=== PATIENT | male | born 1965 | race Caucasian/White ===

== ENCOUNTER 2017-04-13 21:30 | Emergency (ER) | payer OTHER ==
[2017-04-13 21:35] VITALS: BP 131/80
--- NOTE | 2017-04-13 21:39 | ED Physician Documentation ---
PD HPI UPPER EXT INJURY - Stated complaint Stated Complaint: L INDEX FINGER LAC - Chief complaint Chief Complaint: Laceration - History obtained from History obtained from: Patient, Family - History of Present Illness Location: Left, Finger (index) Type of injury: Laceration (knife) Where injury occurred: Home Timing - onset: Today Timing - duration: Hours (1) Timing - details: Abrupt onset Pain level max: 2 Pain level now: 1 Improved by: Rest Worsened by: Moving, Palpating Associated symptoms: No: Weakness, Numbness, Tingling Contributing factors: No: Anticoagulated, Prior ortho surgery - Additonal information Additional information: accidentally cut with knife Review of Systems Neurologic: denies: Focal weakness, Numbness PD PAST MEDICAL HISTORY - Past Medical History Past Medical History: No - Past Surgical History Past Surgical History: No - Present Medications Home Medications: Ambulatory Orders Medication Instructions Recorded Confirmed Fluticasone [Flonase] 04/13/17 Loratadine [Claritin] 0 mg PO DAILY 04/13/17 04/13/17 - Allergies Allergies/Adverse Reactions: Allergies Allergy/AdvReac Type Severity Reaction Status Date / Time No Known Drug Allergies Allergy Verified 04/13/17 21:34 - Living Situation Living Situation: reports: With family Living Arrangement: reports: At home - Social History Does the pt have substance abuse?: No PD ED PE NORMAL - Vitals Vital signs reviewed: Yes - General General: Alert and oriented X 3, No acute distress - Derm Derm: Warm and dry - Extremities Extremities: Other (L index finger - superficial laceration over the pad of the finger. NVI. 1cm) - Neuro Neuro: Alert and oriented X 3 Results - Vitals Vitals: Vital Signs - 24 hr 04/13/17 21:31 Temperature 36.2 C L Heart Rate 81 Respiratory 16 Rate Blood Pressure 131/80 H O2 Saturation 98 Oxygen O2 Source Room air Procedures - Laceration (location) L index finger Length in cm: 1 Wound type: Linear, Superficial Neurovascular status: Sensory intact, Motor intact, Vascular intact Tendon involvement: Tendon intact Skin layer closure: Dermabond Other: Patient tolerated well, No complications, Neurovascular intact, Dressing applied, Tetanus UTD Complexity: Simple PD MEDICAL DECISION MAKING - ED course Complexity details: considered differential, d/w patient, d/w family ED course: Superficial laceration to the left index finger pad. Repaired with Dermabond and a finger cage applied. Warnings of infection and instructions on wound care given at bedside. Also counseled on how to minimize scarring. Patient counseled regarding signs and symptoms for which I believe and urgent re- evaluation would be necessary. Patient with good understanding of and agreement to plan and is comfortable going home at this time This document was made in part using voice recognition software. While efforts are made to proofread this document, sound alike and grammatical errors may occur. Departure - Departure Disposition: 01 Home, Self Care Clinical Impression: Laceration Condition: Good Instructions: ED Laceration Hand Follow-Up: Ramsey Isaac MD [Primary Care Provider] - As Needed Comments: Return if you worsen. Return if you notice redness, swelling or drainage from the wound. Discharge Date/Time: 04/13/17 22:03
== END 2017-04-13 22:03 | disposition home or self-care (01) ==
LOC: ED 21:30
DX: S61.211A Laceration without foreign body of left index finger without damage to nail, initial encounter (principal); W26.0XXA Contact with knife, initial encounter; Y92.019 Unspecified place in single-family (private) house as the place of occurrence of the external cause
CPT/HCPCS: 12001; 99282; 99283

== ENCOUNTER 2018-04-17 09:26 | Day surgery (SDC) | payer OTHER ==
[2018-04-17] MEDS ORDERED: LACTATED RINGERS 1,000 ML IV ONE ×2 (09:29→11:40)
[2018-04-17] MEDS ORDERED: MIDAZOLAM 2 MG/2 ML VIAL IVP ONE (11:09)
[2018-04-17] MEDS ORDERED: fentaNYL 250 MCG/5 ML VIAL IVP ONE (11:09)
[2018-04-17 12:07] VITALS: BP 116/69
== END 2018-04-17 09:27 | disposition home or self-care (01) ==
LOC: SDS 09:26
PROVIDERS: ATTEND Internal Medicine Gastroenterology
PROC: 0DJD8ZZ Inspection of Lower Intestinal Tract, Via Natural or Artificial Opening Endoscopic (ICD-10-PCS; principal; 2018-04-17 11:17)
DX: Z12.11 Encounter for screening for malignant neoplasm of colon (principal); Z87.891 Personal history of nicotine dependence
CPT/HCPCS: 45378; J3010; J7120

== ENCOUNTER 2018-07-04 08:25 | Emergency (ER) | payer OTHER ==
[2018-07-04] MEDS ORDERED: ASPIRIN CHEW 81 MG TABLET PO STA (08:55)
--- NOTE | 2018-07-04 08:59 | ED Physician Documentation ---
PD HPI CHEST PAIN - Stated complaint Stated Complaint: LOW BP/NEAR SYNCOPE - Chief complaint Chief Complaint: General - History obtained from History obtained from: Patient - History of Present Illness Timing - onset: How many minutes ago (40) Timing - onset during: Light activity Timing - details: Now resolved Quality: Tightness Location: Substernal, Left chest Radiation: Left upper extremity Improved by: Rest Associated symptoms: Nausea, Feeling faint / dizzy. No: Shortness of air, Vomiting - Additional information Additional information: The patient is a 52-year-old male who developed sudden onset of dizziness, lightheadedness, that started about 40 minutes prior to arrival while standing with coworkers. He kneeled down and had improvement of the lightheadedness. However while driving home he developed left-sided chest tightness radiating to his left arm, with associated nausea. He also experienced transient tingling in his left face. The symptoms lasted for about 30 minutes before resolving spontaneously. He is currently asymptomatic. Cardiac risk factors negative for diabetes, hypertension, hyperlipidemia. Positive for past history of cigarette smoking; currently he vapes. Grandmother had an ND at age 52. He reports history of similar symptoms a few years ago after smoking 4 packs of cigarettes in about 4 hour's time. Review of Systems Constitutional: reports: Other (Transient lightheadedness.). denies: Fever Ears: denies: Tinnitus/ringing Nose: denies: Congestion Throat: denies: Sore throat Cardiac: reports: Chest pain / pressure. denies: Palpitations Respiratory: denies: Dyspnea, Cough GI: reports: Nausea. denies: Abdominal Pain, Vomiting : denies: Dysuria Skin: denies: Rash Musculoskeletal: denies: Back pain Neurologic: reports: Near syncope. denies: Focal weakness, Numbness, Headache PD PAST MEDICAL HISTORY - Past Medical History Past Medical History: No Cardiovascular: None Respiratory: None Neuro: None Endocrine/Autoimmune: None GI: None - Past Surgical History Past Surgical History: Yes HEENT: Tonsil/Adenoidectomy - Present Medications Home Medications: Ambulatory Orders Medication Instructions Recorded Confirmed Fluticasone [Flonase] 1 spray BC DAILY 04/13/17 07/04/18 Loratadine [Claritin] 0 mg PO DAILY 04/13/17 07/04/18 Naproxen Sodium [Aleve] 220 mg NS DAILY 04/17/18 07/04/18 Nitroglycerin [Nitrostat] 0.4 mg SL Q5MIN PRN #25 tablet 07/04/18 - Allergies Allergies/Adverse Reactions: Allergies Allergy/AdvReac Type Severity Reaction Status Date / Time No Known Drug Allergies Allergy Verified 04/13/17 21:34 - Social History Does the pt smoke?: Yes Smoking Status: Current every day smoker (vapes) Does the pt drink ETOH?: No Does the pt have substance abuse?: No - Immunizations Immunizations are current?: Yes - POLST Patient has POLST: No PD ED PE NORMAL - Vitals Vital signs reviewed: Yes (hypertensive) - General General: Alert and oriented X 3, Well developed/nourished - HEENT HEENT: Atraumatic, EOMI, Moist mucous membranes, Pharynx benign - Neck Neck: No adenopathy, No JVD - Cardiac Cardiac: RRR, No murmur - Respiratory Respiratory: No respiratory distress, Clear bilaterally, Other (No chest wall tenderness.) - Abdomen Abdomen: Soft, Non tender - Back Back: No CVA TTP - Derm Derm: No rash - Extremities Extremities: No edema, No calf tenderness / cord - Neuro Neuro: Alert and oriented X 3, No motor deficit, Normal speech Results - Vitals Vitals: Vital Signs - 24 hr 07/04/18 07/04/18 07/04/18 08:33 09:34 10:09 Temperature 36.3 C L Heart Rate 56 L 58 L 55 L Respiratory 18 16 16 Rate Blood Pressure 159/89 H 155/84 H 144/84 H O2 Saturation 97 98 98 07/04/18 07/04/18 07/04/18 11:11 12:51 13:54 Temperature Heart Rate 60 61 70 Respiratory 18 16 16 Rate Blood Pressure 137/85 H 136/88 H 139/86 H O2 Saturation 98 96 97 Oxygen O2 Source Room air - EKG (time done) 08:35 Rate: Rate (enter#) (54) Rhythm: NSR [place]: Normal Intervals: Normal [place] QRS: Normal Ischemia: Normal ST segments, Other (Early R-wave transition) Computer interpretation: Agree with computer - Labs Labs: Laboratory Tests 07/04/18 07/04/18 07/04/18 08:40 08:40 08:40 WBC 6.8 RBC 4.84 Hgb 13.9 L Hct 40.9 L MCV 84.6 MCH 28.8 MCHC 34.0 RDW 13.7 Plt Count 236 MPV 7.4 Neut # (Auto) 3.9 Lymph # (Auto) 2.2 [place] # (Auto) 0.4 Eos # (Auto) 0.3 Baso # (Auto) 0.1 Absolute Nucleated RBC 0.01 Nucleated RBC % 0.1 Sodium 139 Potassium 3.9 Chloride 105 Carbon Dioxide 28 Anion Gap 6.0 BUN 20 Creatinine 1.1 Estimated GFR (MDRD) 71 L Glucose 107 H POC Whole Bld Glucose 97 Calcium 8.9 Total Bilirubin 0.9 AST 24 ALT 29 Alkaline Phosphatase 67 Troponin I Total Protein 7.5 Albumin 4.4 Globulin 3.1 Albumin/Globulin Ratio 1.4 Lipase 32 07/04/18 07/04/18 08:40 11:50 WBC RBC Hgb Hct MCV MCH MCHC RDW Plt Count MPV Neut # (Auto) Lymph # (Auto) [place] # (Auto) Eos # (Auto) Baso # (Auto) Absolute Nucleated RBC Nucleated RBC % Sodium Potassium Chloride Carbon Dioxide Anion Gap BUN Creatinine Estimated GFR (MDRD) Glucose POC Whole Bld Glucose Calcium Total Bilirubin AST ALT Alkaline Phosphatase Troponin I < 0.04 < 0.04 Total Protein Albumin Globulin Albumin/Globulin Ratio Lipase - Rads (name of study) CXR Radiology: Prelim report reviewed, EMP read contemporaneously, See rad report ( Normal AP portable upright chest.) PD MEDICAL DECISION MAKING - ED course Complexity details: reviewed results, re-evaluated patient, considered differential, d/w patient, d/w family ED course: The underlying cause of the patient's near syncopal episode and transient chest pain is uncertain at this time. Cardiac ischemia or dysrhythmia remains a consideration, but there does not appear to be an acute myocardial infarction at this time, with normal EKG, no rhythm disturbance on cardiac monitoring over a four-hour period of time, and negative troponins. He remained asymptomatic throughout his course of time in the emergency department. Noncardiac considerations include gastroesophageal reflux, vasovagal near-syncope, and, much less likely, pulmonary embolus. Treatment in the emergency department included administration of 4 baby aspirin orally. He is being discharged with prescription for sublingual nitroglycerin to use in the event he develops recurrent symptoms. I discussed with him and his the importance of outpatient follow-up to include the possibility of cardiac stress testing. I discussed with them potentially worrisome signs or symptoms that should prompt reevaluation in the emergency department. - Sepsis Event Vital Signs: Vital Signs - 24 hr 07/04/18 07/04/18 07/04/18 08:33 09:34 10:09 Temperature 36.3 C L Heart Rate 56 L 58 L 55 L Respiratory 18 16 16 Rate Blood Pressure 159/89 H 155/84 H 144/84 H O2 Saturation 97 98 98 07/04/18 07/04/18 07/04/18 11:11 12:51 13:54 Temperature Heart Rate 60 61 70 Respiratory 18 16 16 Rate Blood Pressure 137/85 H 136/88 H 139/86 H O2 Saturation 98 96 97 Oxygen O2 Source Room air Departure - Departure Disposition: 01 Home, Self Care Clinical Impression: Near syncope Chest pain Qualifiers: Chest pain type: unspecified Qualified Code(s): R07.9 - Chest pain, unspecified Condition: Stable Instructions: ED Near Syncope Unkn Follow-Up: GRACY DYER MD [Primary Care Provider] - Prescriptions: Nitroglycerin [Nitrostat] 0.4 mg SL Q5MIN PRN #25 tablet PRN Reason: Chest Pain Comments: Take 1 baby aspirin daily. Follow up with your primary physician, and discuss outpatient cardiac stress test. If you have recurrent chest discomfort take sublingual nitroglycerin as prescribed. If discomfort persists, take a second sublingual nitroglycerin and call 911. Discharge Date/Time: 07/04/18 13:58
[2018-07-04 09:02] LABS: BASOPHILS # (AUTO) 0.1 10^3/uL (0.0-0.1); BASOPHILS % (AUTO) 0.8 %; EOSINOPHILS # (AUTO) 0.3 10^3/uL (0.0-0.7); EOSINOPHILS % (AUTO) 4.3 %; HGB - HEMOGLOBIN 13.9 g/dL (14.0-18.0); LYMPHOCYTES # (AUTO) 2.2 10^3/uL (1.5-3.5); LYMPHOCYTES % (AUTO) 32.1 %; MEAN CORPUSCULAR HEMOGLOBIN 28.8 pg (27.0-31.0); MEAN CORPUSCULAR VOLUME 84.6 fL (80.0-94.0); MEAN PLATELET VOLUME 7.4 fL (7.4-11.4); MONOCYTES # (AUTO) 0.4 10^3/uL (0.0-1.0); NEUTROPHILS # (AUTO) 3.9 10^3/uL (1.5-6.6); NEUTROPHILS % (AUTO) 56.8 %; PLT - PLATELET COUNT 236 10^3/uL (130-450); RED BLOOD COUNT 4.84 10^6/uL (4.70-6.10); RED CELL DISTRIBUTION WIDTH 13.7 % (12.0-15.0); WHITE BLOOD COUNT 6.8 x10^3/uL (4.8-10.8)
--- NOTE | 2018-07-04 09:14 | XRAY Report ---
Procedure Date: 07/04/2018 Accession Number: [id number] / [id number] Procedure: XR - Chest 1 View X-Ray CPT Code: 33410 FULL RESULT: EXAM: CHEST RADIOGRAPHY ONE VIEW EXAM DATE: 07/04/2018. CLINICAL HISTORY: Chest pain. COMPARISON: None. TECHNIQUE: AP upright portable chest at 0856. FINDINGS: Lungs/Pleura: Normal vasculature. The lungs are clear. No pleural fluid or pneumothorax. Mediastinum: Normal cardiac and mediastinal contours. Bones: Normal. IMPRESSION: Normal AP upright portable chest. RADIA
[2018-07-04 09:16] LABS: ALBUMIN 4.4 g/dL (3.2-5.5); ALBUMIN/GLOBULIN RATIO 1.4 (1.0-2.2); BILIRUBIN,TOTAL 0.9 mg/dL (0.2-1.0); CALCIUM 8.9 mg/dL (8.5-10.3); CREATININE 1.1 mg/dL (0.6-1.2); TOTAL PROTEIN 7.5 g/dL (6.7-8.2)
[2018-07-04 13:55] VITALS: BP 139/86
== END 2018-07-04 13:58 | disposition home or self-care (01) ==
LOC: ED 08:25
DX: R55 Syncope and collapse (principal); R07.9 Chest pain, unspecified; F17.200 Nicotine dependence, unspecified, uncomplicated
CPT/HCPCS: 36415; 71045; 80053; 83690; 84484; 85025; 93005; 99284; A9270

== ENCOUNTER 2019-05-21 12:16 | Outpatient (CLI) | payer OTHER ==
[2019-05-21] MEDS ORDERED: GADOBUTROL 10 MMOL/10 ML VIAL ONE (13:31)
[2019-05-21] MEDS ORDERED: GADOBUTROL 10 MMOL/10 ML VIAL IV ONE (13:50)
--- NOTE | 2019-05-22 09:38 | MRI Report ---
Reason: GANGLION,UNSPECIFIED HAND Procedure Date: 05/21/2019 Accession Number: [id number] / [id number] Procedure: MRI - Hand LT W/WO CPT Code: FULL RESULT: EXAM: LEFT HAND MRI WITHOUT AND WITH CONTRAST EXAM DATE: 05/21/2019 02:00 PM. CLINICAL HISTORY: Palpable mass.? Ganglion cyst. COMPARISON: None. TECHNIQUE: Multiplanar, multisequence T1-weighted and fluid-sensitive sequences of the hand before and after administration of intravenous contrast. IV contrast: 10 mL of Gadavist. Other: None. FINDINGS: Bones: No fractures or subluxations. No marrow edema or abnormal enhancement. No bone lesions. Cartilage: The articular cartilage is unremarkable. Ligaments: The visualized collateral ligaments are intact. Tendons: The flexor and extensor tendons are unremarkable. Musculature: No edema or fatty atrophy. Other: No joint effusions or synovitis. The subcutaneous tissues are unremarkable. No abscess or cellulitis. IMPRESSION: No MRI abnormalities in the hand. RADIA
== END 2019-05-21 12:17 | disposition home or self-care (01) ==
LOC: DI 12:16
PROVIDERS: ATTEND Orthopaedic Surgery
DX: M67.442 Ganglion, left hand (principal)
CPT/HCPCS: 73220; A9585

== ENCOUNTER 2022-04-09 07:53 | Outpatient (CLI) | payer OTHER ==
[2022-04-09] MEDS ORDERED: GADOBUTROL 10 MMOL/10 ML VIAL ONE (08:25)
--- NOTE | 2022-04-09 09:45 | MRI Report ---
PROCEDURE: Brain W/WO INDICATIONS: TREMOR CONTRAST: IV CONTRAST: Gadavist ml: 10 TECHNIQUE: Noncontrast axial T1 spin echo, axial T2 fast spin echo, sagittal and axial FLAIR, coronal T2 fast sp in echo, axial gradient echo, axial diffusion and ADC through the brain. After the administration of contrast, axial and coronal T1 spin echo with fat saturation through the brain. COMPARISON: None. FINDINGS: Image quality: Excellent. CSF spaces: Basal cisterns are patent. No extra-axial fluid collections. Ventricles are normal in size and shape. Brain: No midline shift. No intracranial bleeds or masses. No abnormal intracranial enhancement. There is cerebral volume loss for age. There is minimal periventricular white matter chronic small v essel ischemic change. The brainstem appears normal. Diffusion-weighted images demonstrate no acute ischemic insults. No chronic ischemic insults. Normal intravascular flow voids are present. Skull and face: Calvarial marrow is normal in signal. Orbits appear normal. Sinuses: Mastoids are clear. Bilateral antrectomy and ethmoidectomy has been performed. Moderate bila teral maxillary sinus mucosal thickening. Air-fluid level within the left maxillary sinus. Mild mucos al thickening within the ethmoidectomy bed. Mild right frontal sinus mucosal thickening. Mild because of thickening within the right sphenoid sinus. IMPRESSION: 1. Mild volume loss. Minimal small vessel ischemic disease. 2. Sinus disease. 3. No acute process. No recent infarct. Reviewed by: Cristal Peters MD on 04/09/2022 9:44 AM PDT Approved by: Cristal Peters MD on 04/09/2022 9:44 AM PDT Station ID: [id number]
[2022-04-09] MEDS ORDERED: GADOBUTROL 10 MMOL/10 ML VIAL IVP ONE (16:31)
== END 2022-04-09 07:54 | disposition home or self-care (01) ==
LOC: DI 07:53
PROVIDERS: ATTEND Student in an Organized Health Care Education/Training Program
DX: R25.1 Tremor, unspecified (principal); J32.9 Chronic sinusitis, unspecified
CPT/HCPCS: 70553; A9585

== ENCOUNTER 2023-10-26 18:11 | Emergency (ER) | payer OTHER ==
[2023-10-26 19:17] LABS: BASOPHILS # (AUTO) 0.1 10^3/uL (0.0-0.1); BASOPHILS % (AUTO) 0.8 %; EOSINOPHILS # (AUTO) 0.4 10^3/uL (0.0-0.7); EOSINOPHILS % (AUTO) 3.8 %; HCT - HEMATOCRIT 42.8 % (42.0-52.0); HGB - HEMOGLOBIN 13.7 g/dL (14.0-18.0); LYMPHOCYTES # (AUTO) 2.5 10^3/uL (1.5-3.5); LYMPHOCYTES % (AUTO) 26.9 %; MEAN CORPUSCULAR HEMOGLOBIN 28.1 pg (27.0-31.0); MEAN CORPUSCULAR VOLUME 87.7 fL (80.0-94.0); MEAN PLATELET VOLUME 9.3 fL (7.4-11.4); MONOCYTES # (AUTO) 0.6 10^3/uL (0.0-1.0); MONOCYTES % (AUTO) 6.5 %; NEUTROPHILS # (AUTO) 5.7 10^3/uL (1.5-6.6); NEUTROPHILS % (AUTO) 61.7 %; PLT - PLATELET COUNT 266 10^3/uL (130-450); RED BLOOD COUNT 4.88 10^6/uL (4.70-6.10); RED CELL DISTRIBUTION WIDTH 13.2 % (12.0-15.0); WHITE BLOOD COUNT 9.2 x10^3/uL (4.8-10.8)
[2023-10-26 19:18] LABS: BILIRUBIN,URINE NEGATIVE (NEGATIVE); GLUCOSE, URINE (UA) NEGATIVE (NEGATIVE); KETONES,URINE (UA) NEGATIVE (NEGATIVE); LEUKOCYTE ESTERASE, URINE NEGATIVE (NEGATIVE); NITRITE,URINE NEGATIVE (NEGATIVE); OCCULT BLOOD,URINE LARGE (NEGATIVE); PH,URINE 5.5 PH (5.0-7.5); PROTEIN,URINE NEGATIVE (NEGATIVE); UROBILINOGEN,URINE 0.2 (NORMAL) E.U./dL (NORMAL)
[2023-10-26] MEDS ORDERED: ONDANSETRON 4 MG/2 ML VIAL IVP STA (19:21)
[2023-10-26] MEDS ORDERED: SODIUM CHLORIDE 0.9% 1,000 ML IV STA (19:21)
[2023-10-26] MEDS ORDERED: MORPHINE 2 MG/ML CARPUJECT IVP STA (19:21)
[2023-10-26 19:26] LABS: CLARITY,URINE CLEAR (CLEAR)
[2023-10-26 19:28] LABS: ALBUMIN 4.4 g/dL (3.2-5.5); ALBUMIN/GLOBULIN RATIO 1.6 (1.0-2.2); BILIRUBIN,TOTAL 0.8 mg/dL (0.2-1.0); CALCIUM 9.3 mg/dL (8.5-10.3); POTASSIUM 3.9 mmol/L (3.5-4.5); TOTAL PROTEIN 7.1 g/dL (6.4-8.9)
[2023-10-26 19:30] LABS: BACTERIA,URINE Rare /HPF (None Seen); MUCUS,URINE Marked Strands; SQUAMOUS EPITHELIAL CELL,UR RARE Squamous (<= Few); WBC,URINE 0-3 /HPF (0-3)
--- NOTE | 2023-10-26 21:07 | CT Report ---
PROCEDURE: ABDOMEN/PELVIS WO INDICATIONS: R flank to groin pain TECHNIQUE: A CT scan of the abdomen and pelvis was performed without the use of intravenous contrast. Images we re recorded and evaluated at appropriate window settings. Reformats: coronal and sagittal. For radiat ion dose reduction, the following was used: automated exposure control, adjustment of mA and/or kV ac cording to patient size. COMPARISON: None. FINDINGS: Image quality: Excellent. Lung bases and heart: Unremarkable. Liver: No solid mass. Gallbladder and biliary tree: Normal. Spleen: No splenomegaly. Pancreas: No pancreatic ductal dilation. Adrenals: No adrenal nodule. Kidneys and ureters: No obstructive hydronephrosis. No renal cystic lesion which requires follow up. No solid mass. There is a 3 mm calculus that is nonobstructive within the lower third collecting syst em of the left kidney. Along the course of the right ureter no calculus is seen. Bowel and peritoneum: No bowel distension. No pathologic free fluid. Lymph nodes: No central or retroperitoneal adenopathy. Vessels: No infrarenal aortic aneurysm. PELVIS Reproductive organs: Unremarkable. Bladder: No wall thickness, accounting for underdistention. Pelvic lymph nodes: No pelvic adenopathy by size criteria. Bones: No aggressive osseous abnormality. Other: No significant ventral or inguinal hernia. Normal appendix found right lower quadrant. IMPRESSION: No obstructive hydronephrosis or obstructing renal stone found as cause of right-sided flank pain. No te is made of a nonobstructive 3 mm lower third left collecting system calculus. Normal appendix denzel dAlthea Reviewed by: Hussein Smith MD on 10/26/2023 9:06 PM [facility] Approved by: Hussein Smith MD on 10/26/2023 9:06 PM PST Station ID: [id number]
--- NOTE | 2023-10-26 21:08 | ED Physician Documentation ---
PD HPI ABD PAIN - Stated complaint Stated Complaint: R SIDE/GROIN PX - Chief complaint Chief Complaint: Abd Pain - History obtained from History obtained from: Patient - Additional information Additional information: Patient is a 57-year-old male presenting for evaluation of right flank to right groin pain is starting around 730 this morning. Is been waxing waning throughout the day. It is achy in nature. He has associated nausea and decreased appetite. Reminds him of prior kidney stones but it has been a long time since he has had a kidney stone. No fever, dysuria or hematuria. No chest pain or shortness of air. Patient has been taking some ibuprofen for his pain with some improvement. Review of Systems Constitutional: denies: Fever Cardiac: denies: Chest pain / pressure Respiratory: denies: Dyspnea GI: reports: Abdominal Pain. denies: Vomiting, Diarrhea : denies: Dysuria PD PAST MEDICAL HISTORY - Past Medical History Past Medical History: Yes Cardiovascular: None Respiratory: None Neuro: None Endocrine/Autoimmune: None GI: None : Kidney stones - Past Surgical History Past Surgical History: Yes HEENT: Tonsil/Adenoidectomy - Present Medications Home Medications: Ambulatory Orders Medication Instructions Recorded Confirmed Fluticasone [Flonase] 1 spray BC DAILY 04/13/17 07/04/18 Loratadine [Claritin] 0 mg PO DAILY 04/13/17 07/04/18 Naproxen Sodium [Aleve] 220 mg NS DAILY 04/17/18 07/04/18 Nitroglycerin [Nitrostat] 0.4 mg SL Q5MIN PRN #25 tablet 07/04/18 Ondansetron Odt [Zofran] 4 mg TL Q6H PRN #10 tablet 10/26/23 Oxycodone HCl/Acetaminophen 1 - 2 each PO Q6H PRN #14 tablet 10/26/23 [Percocet 5-325 mg Tablet] Tamsulosin [Flomax] 0.4 mg PO DAILY #14 cap 10/26/23 - Allergies Allergies/Adverse Reactions: Allergies Allergy/AdvReac Type Severity Reaction Status Date / Time No Known Drug Allergies Allergy Verified 10/26/23 18:23 - Social History Does the pt smoke?: Yes Smoking Status: Current every day smoker Does the pt drink ETOH?: No Does the pt have substance abuse?: No - Immunizations Immunizations are current?: Yes - POLST Patient has POLST: No PD ED PE NORMAL - General General: Alert and oriented X 3, No acute distress, Well developed/nourished - HEENT HEENT: Atraumatic - Neck Neck: Supple, no meningeal sign - Cardiac Cardiac: RRR - Respiratory Respiratory: No respiratory distress, Clear bilaterally - Abdomen Abdomen: Normal bowel sounds, Soft, Non tender, Non distended, Other (No reproducible tenderness but reports pain in the right abdomen) - Back Back: No CVA TTP - Derm Derm: Warm and dry - Neuro Neuro: Normal speech Results - Vitals Vitals: Vital Signs - 24 hr 10/26/23 10/26/23 10/26/23 18:23 18:26 21:20 Temperature 36.8 C Heart Rate 63 68 66 Respiratory 16 18 Rate Blood Pressure 147/67 H 142/70 H 152/84 H O2 Saturation 99 98 100 10/26/23 22:07 Temperature Heart Rate 69 Respiratory 18 Rate Blood Pressure 149/86 H O2 Saturation 98 Oxygen O2 Source Room air - Labs Labs: Laboratory Tests 10/26/23 10/26/23 10/26/23 19:05 19:05 19:05 WBC 9.2 RBC 4.88 Hgb 13.7 L Hct 42.8 MCV 87.7 MCH 28.1 MCHC 32.0 RDW 13.2 Plt Count 266 MPV 9.3 Neut # (Auto) 5.7 Lymph # (Auto) 2.5 [place] # (Auto) 0.6 Eos # (Auto) 0.4 Baso # (Auto) 0.1 Absolute Nucleated RBC 0.00 Nucleated RBC % 0.0 Sodium 137 Potassium 3.9 Chloride 102 Carbon Dioxide 28 Anion Gap 7.0 BUN 18 Creatinine 1.0 Estimated GFR (MDRD) 78 L Glucose 95 Calcium 9.3 Total Bilirubin 0.8 AST 20 ALT 22 Alkaline Phosphatase 72 Total Protein 7.1 Albumin 4.4 Globulin 2.7 Albumin/Globulin Ratio 1.6 Lipase 21 Urine Color YELLOW Urine Clarity CLEAR Urine pH 5.5 Ur Specific [place] >=1.030 H Urine Protein NEGATIVE Urine Glucose (UA) NEGATIVE Urine Ketones NEGATIVE Urine Occult Blood LARGE H Urine Nitrite NEGATIVE Urine Bilirubin NEGATIVE Urine Urobilinogen 0.2 (NORMAL) Ur Leukocyte Esterase NEGATIVE Urine RBC 11-25 H Urine WBC 0-3 Ur Squamous Epith Cells RARE Squamous Urine Bacteria Rare Urine Mucus Marked Strands Ur Microscopic Review INDICATED Urine Culture Comments NOT INDICATED PD Medical Decision Making - ED course Complexity details: reviewed results, re-evaluated patient, d/w patient, d/w family ED course: Patient is a 57-year-old male presenting for evaluation of right flank pain. Has a history of stones and feels that this is similar. Vital signs are stable and he does not appear septic. Abdominal exam is benign. CBC, chemistries, urinalysis were obtained and reviewed. There is a little bit of blood in the urine. CT scan of the abdomen and pelvis was obtained without contrast. Radiology does not report a right sided stone but upon my interpretation of the images I do see a distal ureter stone near the right UVJ which I suspect is the source of his symptoms. Patient has improvement in his symptoms here with IV morphine, Zofran and fluids. He understands the management for this stone. He also is advised on concerning symptoms to return for. Departure - Departure Disposition: 01 Home, Self Care Clinical Impression: Right ureteral stone Condition: Stable Instructions: ED Stone Renal W Colic Follow-Up: OSVALDO MANN NP [Primary Care Provider] - Perry Piña MD [Provider Admit Priv/Credential] - Prescriptions: Tamsulosin [Flomax] 0.4 mg PO DAILY #14 cap Oxycodone HCl/Acetaminophen [Percocet 5-325 mg Tablet] 1 - 2 each PO Q6H PRN #14 tablet PRN Reason: pain Ondansetron Odt [Zofran] 4 mg TL Q6H PRN #10 tablet PRN Reason: Nausea / Vomiting Comments: Your labs are reassuring today. I do suspect there is a small stone seen right near your bladder that is not mentioned by the radiologist and I suspect that this is the source of your symptoms today. Therefore I am starting you on Flomax To help you pass the stone as well as sending prescriptions for pain and nausea medications to [facility] in [place]. I would recommend follow-up with your primary care provider or urologist. I have listed the name of a local urologist in your paperwork. Return to the ER with any worsening symptoms such as increased pain, fever or any other concerns. Forms: PCP List Discharge Date/Time: 10/26/23 22:07
[2023-10-26] MEDS ORDERED: ONDANSETRON ODT 4 MG Prepack 2 TL PRN (21:30)
[2023-10-26] MEDS ORDERED: oxyCODONE/ACET 5/325 Prepack 4 PO STA (21:30)
[2023-10-26 22:15] VITALS: BP 149/86; O2SAT 98
== END 2023-10-26 22:07 | disposition home or self-care (01) ==
LOC: ED 18:11
DX: N20.1 Calculus of ureter (principal); F17.200 Nicotine dependence, unspecified, uncomplicated; Z87.442 Personal history of urinary calculi; Z79.899 Other long term (current) drug therapy
CPT/HCPCS: 36415; 80053; 81001; 81003; 83690; 85025; 87086; 96374; 96375; 99284